=== PATIENT | female | born 1990 | race African-American/Black ===

== ENCOUNTER 2017-08-13 22:42 | Emergency (ER) | payer MEDICAID, OTHER ==
[~2017-08-13] VITALS: Ht 157.5 cm; Wt 58.1 kg
[2017-08-13] MEDS: KETOROLAC TROMETHAMINE 60 MG INJ IM ONE (23:47)
--- NOTE | 2017-08-13 23:55 | NUR ---
Pt seen by Dr. Reaves. UA collected and sent. Pt medicated for pain, will monitor for effects of medication. Pt resting in position of comfort for self.
[2017-08-13 23:58] LABS: *URINE HCG, QUAL NEGATIVE (NEGATIVE)
[2017-08-14] MEDS ORDERED: KETOROLAC TROMETHAMINE 60 MG INJ IM ONE (00:01)
--- NOTE | 2017-08-14 00:37 | NUR ---
Pt to and from CT via w/c. Pt resting in position of comfort for self. Pt sts pain feels worse. Sts headache is 7/10 being still and goes up to a 8-9/[address] Reaves notified. Awaiting further orders.
--- NOTE | 2017-08-14 00:49 | NUR ---
Dr. Reaves at bedside
[2017-08-14] MEDS: OXYCODONE/APAP 5-325 MG TABLET PO ONE (01:11)
--- NOTE | 2017-08-14 01:15 | NUR ---
Pt stable for discharge per MD. Pt given ACI. PT verbalized understanding of dc instructions. Pt ambulated out of ER with steady gait to to wait for her ride home.
[2017-08-14 01:19] VITALS: BP 115/51
[2017-08-14] MEDS ORDERED: OXYCODONE/APAP 5-325 MG TABLET ONE (01:22)
== END 2017-08-14 01:15 | disposition home or self-care (01) ==
LOC: ER 22:43
DX: M54.81 Occipital neuralgia (principal); F32.9 Major depressive disorder, single episode, unspecified; Z88.0 Allergy status to penicillin
CPT/HCPCS: 70450; 72125; 84703; 96372; 99285; A4663; J1885

== ENCOUNTER 2024-06-09 21:30 | Inpatient (IN) | payer MEDICAID ==
[~2024-06-09] VITALS: Ht 157.5 cm; Wt 80.3 kg
[2024-06-09] MEDS ORDERED: IOHEXOL 350 100 ML INFUS..BTL ONE (23:02)
[2024-06-09] MEDS ORDERED: IV NORMAL SALINE 250 ML IV ONE (23:02)
[2024-06-09] MEDS ORDERED: SWABABLE VALVE TRANSFER SET EA MC ONE (23:02)
[2024-06-09 23:05] LABS: HEMOGLOBIN 13.4 g/dL (10.9-14.3); MONOCYTES # (AUTO) 0.4 K/uL (0.1-1.30); RED BLOOD CELL COUNT(AUTO) 4.37 MIL/uL (3.63-4.92); RED CELL DISTRIBUTION WIDTH 13.7 % (12.3-17.7)
[2024-06-09 23:08] LABS: BASOPHILS % (AUTO) 0.6 % (0.0-2.0); EOSINOPHILS # (AUTO) 0.1 K/uL (0.0-0.7); EOSINOPHILS % (AUTO) 1.4 % (0.0-7.0); HEMATOCRIT 40.5 % (31.2-41.9); LYMPHOCYTES # (AUTO) 2.8 K/uL (0.8-4.8); LYMPHOCYTES % (AUTO) 38.4 % (20.5-51.5); MEAN CORPUSCULAR HEMOGLOBIN 30.6 uug (24.7-32.8); MEAN CORPUSCULAR HGB CONC 33 g/dL (32.3-35.6); MEAN CORPUSCULAR VOLUME 92.7 fL (75.5-95.3); MONOCYTES % (AUTO) 6.1 % (0.0-11.0); NEUTROPHILS # (AUTO) 3.9 K/uL (1.8-8.9); NEUTROPHILS % (AUTO) 53.5 % (38.5-71.5); PLATELET COUNT (AUTO) 343 K/uL (179-408); WHITE BLOOD COUNT (AUTO) 7.2 K/uL (3.8-11.8)
[2024-06-09 23:09] LABS: DIFFERENTIAL COMMENT 1
[2024-06-09 23:21] LABS: ALANINE AMINOTRANSFERASE 21 U/L (14-59); ALBUMIN 4.1 g/dL (3.4-5.0); ALKALINE PHOSPHATASE 60 U/L (50-136); ASPARTATE AMINOTRANSFERASE 25 U/L (15-37); BILIRUBIN,DIRECT < 0.1 mg/dL (0.0-0.2); BILIRUBIN,TOTAL 0.4 mg/dL (0.2-1.0); CALCIUM 9.9 mg/dL (8.5-10.1); CARBON DIOXIDE 24 mmol/L (21-32); CHLORIDE 100 mmol/L (98-107); GLUCOSE 83 mg/dL (74-106); POTASSIUM 4.5 mmol/L (3.5-5.1); SODIUM SERUM 136 mmol/L (136-145); TOTAL PROTEIN, SERUM 8.8 g/dL (6.4-8.2); UREA NITROGEN, BLOOD 12 mg/dL (7-18)
[2024-06-09 23:36] LABS: *URINE HCG, QUAL NEGATIVE (NEGATIVE)
[2024-06-09] MEDS ORDERED: ASPIRIN 81 MG TAB.CHEW ONE (23:40)
[2024-06-09] MEDS: ASPIRIN 81 MG TAB.CHEW PO ONE (23:42)
[2024-06-09 23:45] LABS: *AMPHETAMINE, URINE NEGATIVE (NEGATIVE); *BARBITURATE, URINE NEGATIVE (NEGATIVE); *BENZODIAZEPINE, URINE NEGATIVE (NEGATIVE); *CANNABINOID, URINE NEGATIVE (NEGATIVE); *COCCAINE, URINE NEGATIVE (NEGATIVE); *OPIATE, URINE NEGATIVE (NEGATIVE); *PHENCYCLIDINE SCREEN,URINE NEGATIVE (NEGATIVE); FENTANYL, URINE NEGATIVE (NEGATIVE)
[2024-06-10] MEDS ORDERED: LORAZEPAM 2 MG/1 ML VIAL ONE (00:22)
[2024-06-10] MEDS: LORAZEPAM 2 MG/1 ML VIAL IV ONE (00:26)
[2024-06-10] MEDS ORDERED: hydrALAZINE HCL 20 MG/1 ML VIAL IV PRN (00:45)
[2024-06-10] MEDS ORDERED: MAG HYDROX/AL HYDROX/SIMETH 30 ML LIQUID UDC PO PRN (00:45)
[2024-06-10] MEDS: ACETAMINOPHEN 325 MG TABLET PO PRN (04:44)
[2024-06-10] MEDS: BLOOD SUGAR DIAGNOSTIC 1 EACH STRIP VI SCH (06:26)
[2024-06-10 06:47] LABS: BASOPHILS % (AUTO) 0.7 % (0.0-2.0); EOSINOPHILS # (AUTO) 0.1 K/uL (0.0-0.7); EOSINOPHILS % (AUTO) 1.5 % (0.0-7.0); HEMOGLOBIN 12.5 g/dL (10.9-14.3); LYMPHOCYTES # (AUTO) 2.6 K/uL (0.8-4.8); LYMPHOCYTES % (AUTO) 45.8 % (20.5-51.5); MEAN CORPUSCULAR HEMOGLOBIN 31.1 uug (24.7-32.8); MEAN CORPUSCULAR HGB CONC 34 g/dL (32.3-35.6); MEAN CORPUSCULAR VOLUME 92.2 fL (75.5-95.3); MONOCYTES # (AUTO) 0.5 K/uL (0.1-1.30); MONOCYTES % (AUTO) 8.4 % (0.0-11.0); NEUTROPHILS # (AUTO) 2.4 K/uL (1.8-8.9); NEUTROPHILS % (AUTO) 43.6 % (38.5-71.5); PLATELET COUNT (AUTO) 317 K/uL (179-408); RED BLOOD CELL COUNT(AUTO) 4.01 MIL/uL (3.63-4.92); RED CELL DISTRIBUTION WIDTH 13.3 % (12.3-17.7); WHITE BLOOD COUNT (AUTO) 5.6 K/uL (3.8-11.8)
[2024-06-10 06:56] LABS: DIFFERENTIAL COMMENT 1
[2024-06-10 07:07] LABS: ALBUMIN 3.4 g/dL (3.4-5.0); BILIRUBIN,TOTAL 0.4 mg/dL (0.2-1.0); CREATININE 1.2 mg/dL (0.6-1.3); POTASSIUM 3.7 mmol/L (3.5-5.1); TOTAL PROTEIN, SERUM 7.2 g/dL (6.4-8.2)
[2024-06-10 07:48] LABS: THYROID STIMULATING HORMONE 3.469 mIU/mL (0.358-3.740)
[2024-06-10] MEDS: PANTOPRAZOLE SODIUM 40 MG VIAL IV SCH (08:34)
[2024-06-10] MEDS: ASPIRIN EC 81 MG TABLET.DR PO SCH (08:35)
[2024-06-10 11:56] VITALS: BP 108/70; O2SAT 99
[2024-06-10] MEDS ORDERED: ASPI-618 PO (12:07)
== END 2024-06-10 14:35 | disposition home or self-care (01) | DRG 54 ==
LOC: ER 21:31 → TELE3 06-10 00:35
PROVIDERS: ATTEND Nurse Practitioner Acute Care
DX: G43.109 Migraine with aura, not intractable, without status migrainosus (principal); F41.9 Anxiety disorder, unspecified; R20.0 Anesthesia of skin; R53.1 Weakness; Z88.0 Allergy status to penicillin
CPT/HCPCS: 36415; 70450; 70496; 71045; 84443; 84484; 84703; 85025; 85730; 93005; A4663; G0378; J2060; J2470; Q9967